=== PATIENT | male | born 1955 | race African-American/Black ===

== ENCOUNTER 2018-04-19 15:41 | Inpatient (IN) | payer MEDICARE ==
[~2018-04-19] VITALS: Ht 121.9 cm; Wt 58.5 kg
[2018-04-19] VITALS (31 sets, daily range): BP systolic 101–134; BP diastolic 61–75
[~2018-04-19 15:41] MED LIST: ETOMIDATE 2 MG/ML 10 ML INJ IV ONE; MIDAZOLAM HCL 2 MG/2 ML VIAL ONE; VECURONIUM BROMIDE FOR INJ 20 MG VIAL ONE
[2018-04-19] MEDS ORDERED: MEROPENEM 1 GM VIAL ONE (16:02)
[2018-04-19] MEDS ORDERED: ACETAMINOPHEN 1000 MG/100 ML 100 ML IV ONE (16:03)
[2018-04-19] MEDS ORDERED: SODIUM CHLORIDE 0.9% 100 ML ONE (16:03)
[2018-04-19] MEDS: NOREPINEPHRINE 8 MG/D5W 250 ML 250 ML IV SCH (16:03)
[2018-04-19] MEDS ORDERED: VANCOMYCIN 1GM/NS 250 ML 250 ML ONE (16:03)
[2018-04-19] MEDS: FENTANYL CITRATE INJ 2000 MCG in SODIUM CHLORIDE 0.9% 210 ML IV PRN (16:14)
[2018-04-19] MEDS ORDERED: ONDANSETRON HCL INJ 2 MG/ML VIAL ONE (16:19)
[2018-04-19 16:36] LABS: BASOPHILS % 0.1 % (0.0-1.0); HEMATOCRIT 46.2 % (38.2-49.6); HEMOGLOBIN 14.4 g/dL (14.0-18.0); LYMPHOCYTES # (AUTO) 3.3 (1.0-3.2); LYMPHOCYTES % 24.4 % (18.0-39.1); MEAN CORPUSCULAR HEMOGLOBIN 26.3 pg (28-32); MEAN CORPUSCULAR HGB CONC 31.2 g/dL (31-35); MEAN CORPUSCULAR VOLUME 84.5 fL (81-99); MONOCYTES # (AUTO) 1.6 (0.2-0.8); MONOCYTES % 11.7 % (4.4-11.3); NEUTROPHILS # (AUTO) 8.7 (2.1-6.9); NEUTROPHILS % 63.4 % (38.7-80.0); PLATELET COUNT 513 x10e3/uL (140-360); RED BLOOD COUNT 5.47 x10e6/uL (4.3-5.7); RED CELL DISTRIBUTION WIDTH 18.4 % (11.7-14.4)
[2018-04-19 16:44] LABS: ABG PH 7.41 (7.31-7.41)
[2018-04-19 16:45] LABS: ABG HCO3 32 mmol/L (23-28); ABG PCO2 50 mmHg (41-51); ABG PO2 209 mmHg (80-105)
[2018-04-19 16:47] LABS: ALBUMIN 3.5 g/dL (3.5-5.0); ALBUMIN/GLOBULIN RATIO 0.8 (0.8-2.0); ANION GAP 19.4 mmol/L (8-16); CALCIUM 9.6 mg/dL (8.4-10.2); CREATININE, SERUM 1.9 mg/dL (0.72-1.25); POTASSIUM 4.4 mmol/L (3.5-5.1)
[2018-04-19] MEDS ORDERED: INSULIN REGULAR, HUMAN 3ML VL 100 UNIT in SODIUM CHLORIDE 0.9% 100 ML 100 ML IV STA ×2 (17:00)
[2018-04-19] MEDS ORDERED: SODIUM CHLORIDE 0.45% 1,000 ML IV SCH (17:00)
[2018-04-19] MEDS ORDERED: SODIUM CHLORIDE 0.45% 1,000 ML IV ONE (17:00)
--- NOTE | 2018-04-19 17:04 | Diagnostic Imaging Report ---
EXAMINATION: CHEST SINGLE (PORTABLE) INDICATION: ET tube placement. Respiratory distress COMPARISON: None FINDINGS: TUBES and LINES: Endotracheal tube with distal tip 3 cm above the char[place]. Enteric tube with distal tip over the stomach. LUNGS: Ill-defined opacity in the right upper lobe and in the right middle lobe could be due to developing pneumonia and/or atelectasis. There is nonspecific elevation of the right hemidiaphragm. PLEURA: No pleural effusion or pneumothorax. HEART AND MEDIASTINUM: The cardiomediastinal silhouette is unremarkable. BONES AND SOFT TISSUES: No acute osseous lesion. Soft tissues are unremarkable. UPPER ABDOMEN: No free air under the diaphragm. IMPRESSION: Ill-defined opacity in the right upper lobe and in the right middle lobe could be due to developing pneumonia and/or atelectasis. Follow-up imaging is indicated to document clearing. Signed by: Dr. Demarcus Wilcox M.D. on 04/19/2018 5:00 PM
[2018-04-19] MEDS ORDERED: VANCOMYCIN 1GM/NS 250 ML 250 ML IV STA (17:26)
[2018-04-19 17:27] LABS: MAGNESIUM 2.4 MG/DL (1.3-2.1); PHOSPHORUS 4.6 MG/DL (2.3-4.7)
[2018-04-19] MEDS ORDERED: MIDAZOLAM HCL 2 MG/2 ML VIAL IV STA ×2 (17:28)
[2018-04-19] MEDS ORDERED: ACETAMINOPHEN 1000 MG/100 ML IV STA (17:29)
[2018-04-19] MEDS ORDERED: INSULIN REGULAR, HUMAN 100 UNIT/1 ML 3ML VIAL IV ONE (17:30)
[2018-04-19] MEDS ORDERED: MEROPENEM 1GM 100 ML IV SCH (17:30)
[2018-04-19] MEDS ORDERED: INSULIN REGULAR, HUMAN 100 UNIT/1 ML 3ML VIAL ONE (17:39)
[2018-04-19] MEDS ORDERED: SODIUM CHLORIDE 0.9% 50ML 50 ML ONE (17:40)
[2018-04-19] MEDS ORDERED: SODIUM CHLORIDE FLUSH 10 ML SYR INJ PRN (17:45)
[2018-04-19] MEDS ORDERED: ASPIRIN 81 MG CHEW TAB PO ONE (17:45)
[2018-04-19] MEDS ORDERED: DEXTROSE 50% SYRINGE 50 ML IV PRN (17:45)
[2018-04-19] MEDS: SODIUM CHLORIDE 23.4% 38.5 MEQ in STERILE WATER IV SOLN 1,000 ML IV SCH (17:45)
[2018-04-19] MEDS ORDERED: VANCOMYCIN HCL 1GM/NS 250 ML BAG IV SCH (17:45)
[2018-04-19 17:49] LABS: THYROID STIMULATING HORMONE 1.776 uIU/mL (0.350-4.940)
[2018-04-19 18:20] LABS: CREATINE KINASE MB 0.3 ng/mL (0-5.0)
[2018-04-19 18:41] LABS: BLOOD UREA NITROGEN 54 mg/dL (7-26); OSMOLALITY,SERUM 353 mOsm/kg (278-305); SODIUM 160 mmol/L (136-145)
[2018-04-19 18:47] LABS: GLUCOSE 483 mg/dL (74-118)
[2018-04-19] MEDS ORDERED: MEROPENEM 500MG 500 MG in SODIUM CHLORIDE 0.9% 50ML 50 ML IV SCH (19:45)
[2018-04-19] MEDS: INSULIN REGULAR, HUMAN 3ML VL 100 UNIT in SODIUM CHLORIDE 0.45% 100 ML 100 ML IV SCH ×8 (20:13→23:39)
[2018-04-19 20:48] LABS: BASOPHILS % 0.2 % (0.0-1.0); HEMATOCRIT 44.1 % (38.2-49.6); HEMOGLOBIN 13.5 g/dL (14.0-18.0); LYMPHOCYTES # (AUTO) 3.7 (1.0-3.2); LYMPHOCYTES % 22.5 % (18.0-39.1); MEAN CORPUSCULAR HEMOGLOBIN 26.1 pg (28-32); MEAN CORPUSCULAR HGB CONC 30.6 g/dL (31-35); MEAN CORPUSCULAR VOLUME 85.1 fL (81-99); MONOCYTES # (AUTO) 1.7 (0.2-0.8); MONOCYTES % 10.2 % (4.4-11.3); NEUTROPHILS % 66.4 % (38.7-80.0); PLATELET COUNT 511 x10e3/uL (140-360); RED BLOOD COUNT 5.18 x10e6/uL (4.3-5.7); RED CELL DISTRIBUTION WIDTH 18.1 % (11.7-14.4)
--- NOTE | 2018-04-19 21:06 | History and Physical ---
CHIEF COMPLAINT/HISTORY OF PRESENT ILLNESS: Patient is brought in from the retirement. He has dementia and unable to give any history. He is currently obtunded. Patient was dehydrated and was hypoxic. The EMS was not able to intubate. Patient was intubated in the emergency room. In the emergency room, 3 liters of saline was given for possible septic shock. Central line was placed and he was admitted to ICU. He required Levophed as well. Patient is contracted with bilateral amputation and lives at the retirement. Initial labs showed white count of 13,000. His lactic acid was 40.4. Sodium 159, potassium 4.4, chloride 114, BUN was 54, and creatinine 1.9. His anion gap of 19.4 and bicarb of 30. REVIEW OF SYSTEMS: Unable to elicit any as patient is intubated and sedated. PAST MEDICAL HISTORY: Per the EMS record and chart, dementia, bedbound, bilateral amputee, minimally responsive. PAST SURGICAL HISTORY: No surgical history is available. FAMILY AND SOCIAL HISTORY: He lives at the retirement. PHYSICAL EXAM VITAL SIGNS: Temperature 101.7, pulse of 99, blood pressure 110/67, and T-max of 103.4. CHEST: Crackles bilaterally. HEART: S1 and S2 audible. ABDOMEN: Soft, has a PEG tube. EXTREMITIES: Bilateral amputee. LABS: Sodium 159, potassium 4.4, chloride 114, BUN 54, creatinine 1.9, and glucose is 483. Chest x-ray was done in the emergency room, which showed ill-defined opacity in the right upper lobe and the right middle lobe could be developing pneumonia. Films reviewed in this context, this is likely aspiration pneumonia as patient suctioned s lot of food material from the airway when patient was getting intubated. ASSESSMENT: Mr. Hughes is a 62-year-old male who is bedbound, bilateral amputation, has a percutaneous endoscopic gastrostomy tube, presented with septic shock likely aspiration pneumonitis and severe dehydration. Current problems; 1. Aspiration pneumonitis. 2. Septic shock due to aspiration pneumonitis, present on admission. 3. Acute respiratory failure due to pneumonia. 4. Severe dehydration. 5. Hypernatremia. 6. Acute kidney injury due to hyponatremia. 7. Percutaneous endoscopic gastrostomy tube status. 8. Bilateral amputation status. 9. Diabetes. PLAN 1. Patient was given broad-spectrum intubated in the emergency room with vancomycin and meropenem. I will consult ID. 2. Severe dehydration with acute kidney injury. We will continue the patient on half normal saline. Consult nephrology. 3. Sedation with fentanyl. 4. Levophed as needed. 5. Ventilator support. Vent settings reviewed. Continue the patient on FiO2 of 50% for now. ABG in a.m. 6. Lovenox subcu for DVT prophylaxis. 7. Famotidine for GI prophylaxis. 8. We will consider changing the sliding scale if the blood sugar is stable. Critical care time spent 60 minutes. Job#: [id number] VINICIUS
[2018-04-19 21:08] LABS: ALBUMIN 3.1 g/dL (3.5-5.0); CALCIUM 8.6 mg/dL (8.4-10.2); CREATININE, SERUM 1.43 mg/dL (0.72-1.25)
[2018-04-19 21:09] LABS: ALBUMIN/GLOBULIN RATIO 0.8 (0.8-2.0)
[2018-04-19 21:13] LABS: LYMPHOCYTES % (MANUAL) 24 % (19-48); MONOCYTES % (MANUAL) 15 % (3.4-9.0); NEUTROPHILS % (MANUAL) 60 % (40-74); PLATELET MORPHOLOGY COMMENT NORMAL; RBC MORPHOLOGY COMMENT NORMAL
[2018-04-19 21:14] LABS: PLATELET ESTIMATE MODERATELY INCREASED
[2018-04-19 21:28] LABS: THYROID STIMULATING HORMONE 0.822 uIU/mL (0.350-4.940)
--- NOTE | 2018-04-19 22:24 | Diagnostic Imaging Report ---
ABDOMEN-1VIEW (KUB) Clinical history: Ileus Technique: AP view abdomen Comparison: None Findings: Limited by portable technique and motion artifact. Right hemidiaphragm is excluded. Abdomen: NG tube tip overlies the proximal stomach, side port at the GE junction. Presumed G-tube overlies the left upper quadrant. No dilated gas-filled loops of bowel. Moderate rectal stool burden. Other: Degenerative changes of the spine and hips. Impression: 1. NG tube side port projects over the GE junction. Consider advancement. 2. No evidence for obstruction or ileus. Moderate rectal stool burden. Signed by: Dr Tiffany Liz MD on 04/19/2018 10:20 PM
[2018-04-19] MEDS: MEROPENEM 1 GM VIAL IV SCH (22:30)
[2018-04-20] VITALS (102 sets, daily range): BP systolic 77–184; BP diastolic 49–150
[2018-04-20] MEDS: INSULIN REGULAR, HUMAN 3ML VL 100 UNIT in SODIUM CHLORIDE 0.45% 100 ML 100 ML IV SCH ×10 (00:30→07:02)
[2018-04-20] MEDS: ALBUTEROL/IPRATROPIUM 3 ML NEB NEB SCH ×6 (02:10→22:25)
[2018-04-20] MEDS: SODIUM CHLORIDE 23.4% 38.5 MEQ in STERILE WATER IV SOLN 1,000 ML IV SCH (04:48)
[2018-04-20 05:07] LABS: BASOPHILS % 0.2 % (0.0-1.0); EOSINOPHILS % 0.2 % (0.0-6.0); HEMATOCRIT 43.5 % (38.2-49.6); HEMOGLOBIN 13.6 g/dL (14.0-18.0); LYMPHOCYTES # (AUTO) 3.7 (1.0-3.2); LYMPHOCYTES % 27.6 % (18.0-39.1); MEAN CORPUSCULAR HEMOGLOBIN 26.4 pg (28-32); MEAN CORPUSCULAR HGB CONC 31.3 g/dL (31-35); MEAN CORPUSCULAR VOLUME 84.5 fL (81-99); MONOCYTES # (AUTO) 1.4 (0.2-0.8); MONOCYTES % 10.1 % (4.4-11.3); NEUTROPHILS # (AUTO) 8.3 (2.1-6.9); NEUTROPHILS % 61.3 % (38.7-80.0); PLATELET COUNT 344 x10e3/uL (140-360); RED BLOOD COUNT 5.15 x10e6/uL (4.3-5.7); RED CELL DISTRIBUTION WIDTH 17.6 % (11.7-14.4)
[2018-04-20 05:29] LABS: ALANINE AMINOTRANSFERASE 82 IU/L (0-55); ALBUMIN 2.9 g/dL (3.5-5.0); ALBUMIN/GLOBULIN RATIO 0.7 (0.8-2.0); ALKALINE PHOSPHATASE 89 IU/L (40-150); ANION GAP 15.7 mmol/L (8-16); BLOOD UREA NITROGEN 33 mg/dL (7-26); BUN/CREATININE RATIO 29 (6-25); CALCIUM 8.6 mg/dL (8.4-10.2); CARBON DIOXIDE 24 mmol/L (22-29); CHLORIDE 124 mmol/L (98-107); CREATINE KINASE 251 IU/L (30-200); CREATININE, SERUM 1.15 mg/dL (0.72-1.25); EST GLOMERULAR FILTRATION RATE > 60 ML/MIN (60-); GLUCOSE 95 mg/dL (74-118); OSMOLALITY,SERUM 324 mOsm/kg (278-305); POTASSIUM 3.7 mmol/L (3.5-5.1); SODIUM 160 mmol/L (136-145)
[2018-04-20] MEDS: MEROPENEM 1 GM VIAL IV SCH ×3 (06:51→23:36)
--- NOTE | 2018-04-20 07:40 | Diagnostic Imaging Report ---
CHEST SINGLE (PORTABLE), 04/20/2018 5:00 AM Technique: CHEST SINGLE (PORTABLE) Comparison: Previous day Clinical history: Pneumonia Findings: See Impression. Stable cardiac silhouette, bones, soft tissues. Impression: Limited by portable technique. 1. Lines/Tubes: Stable ET tube about 3.7 cm above the char[place], NG tube with tip over the stomach and side-port of the distal esophagus, left IJ central venous catheter with tip over the brachiocephalic SVC junction. 2. Mildly improved right lung opacities, possibly atelectasis and/or infection. Signed by: Dr Tiffany Liz MD on 04/20/2018 6:29 AM
[2018-04-20] MEDS ORDERED: MAGNESIUM HYDROXIDE 30 ML UDC PO PRN (10:45)
--- NOTE | 2018-04-20 11:13 | Consultation ---
DATE OF CONSULTATION: INFECTIOUS DISEASE CONSULTATION HISTORY OF PRESENTING ILLNESS: This is a 62-year-old gentleman with a past medical history of uncontrolled diabetes mellitus, hypertension, amputation of first the right leg about 12 years back and amputation of the left leg, above-knee amputation, about 4 years back due to complications of diabetes mellitus. 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 All the information is provided by the daughter at the bedside. The patient is a long term resident. There was a witnessed aspiration, and he ended up choking on his food. The patient had difficulty breathing, and he was in respiratory distress later on. It was complicated with hypertension. Then he had collapse, confusion, and altered mental status. EMS was called. The patient had a failed attempt at intubation at site, but he was intubated later on in the ER at [facility]. The patient has an NG tube for possible aspiration and a gastrostomy tube for his feeding. The patient is in ICU. He is intubated. The daughter is at the bedside. PAST MEDICAL HISTORY: As I mentioned above, hypertension, diabetes mellitus, stroke. PAST SURGICAL HISTORY: Amputation of both legs. MEDICATIONS: Reviewed. ALLERGIES: NO KNOWN DRUG ALLERGIES. FAMILY HISTORY: Noncontributory. SOCIAL HISTORY: Patient is a long term resident. REVIEW OF SYSTEMS: Unable to obtain as the patient is intubated. PHYSICAL EXAMINATION VITALS: Temperature is 100.2, respiratory rate 16, heart rate 84, blood pressure 106/62. GENERAL: Emaciated male, intubated. HEENT: Intubation. NG tube. CHEST: Crackles bilaterally. HEART: S1, S2 are normal. ABDOMEN: Soft, nontender. EXTREMITIES: Bilateral amputations, left above-knee amputation and right below-knee amputation. Wounds are well approximated. No open ulcers. NEUROLOGIC: Not awake, sedated. LABS: Sodium 160, potassium 3.7, creatinine 1.15. CK is 251. WBC 13.46, hemoglobin 13.6, platelet count 344. Blood cultures are in progress. Sputum culture shows gram-positive cocci. IMAGING: Right lung opacities. ASSESSMENT AND PLAN: This 62-year-old gentleman with past medical history of hypertension, diabetes mellitus, stroke, and amputation of bilateral legs presents with severe sepsis due to possible aspiration pneumonia. Workup is in progress. Will continue the patient n IV Merrem 1 g q.8 h. and continue the patient on IV vancomycin 1 g q.12 h. The patient is also going to be started on fluconazole 200 mg daily. Further recommendations to follow. We will tailor the antibiotics according to the cultures. Thank you for letting me participate in the care of your patient. Job#: [id number]
[2018-04-20] MEDS: MIDAZOLAM HCL 25 MG in SODIUM CHLORIDE 0.9% 50ML 45 ML IV PRN ×2 (11:20→15:36)
[2018-04-20] MEDS: DEXTROSE 5% 1,000 ML IV SCH ×2 (11:45→23:36)
[2018-04-20] MEDS: FLUCONAZOLE 200 MG/100 ML 100 ML IV SCH (11:45)
[2018-04-20] MEDS: FAMOTIDINE 20 MG/2 ML VIAL IV SCH ×2 (12:08→18:29)
[2018-04-20] MEDS: ENOXAPARIN SOD INJ 40 MG/0.4 ML SYR SC SCH (12:08)
[2018-04-20] MEDS: INSULIN DETEMIR 100 UNIT/ML PEN SQ SCH (12:45)
[2018-04-20 14:09] LABS: CREATINE KINASE MB 0.4 ng/mL (0-5.0)
[2018-04-20 14:29] LABS: ANION GAP 14.1 mmol/L (8-16); BLOOD UREA NITROGEN 26 mg/dL (7-26); BUN/CREATININE RATIO 24 (6-25); CALCIUM 8.2 mg/dL (8.4-10.2); CARBON DIOXIDE 27 mmol/L (22-29); CHLORIDE 121 mmol/L (98-107); EST GLOMERULAR FILTRATION RATE > 60 ML/MIN (60-); GLUCOSE 112 mg/dL (74-118); POTASSIUM 3.1 mmol/L (3.5-5.1); SODIUM 159 mmol/L (136-145)
[2018-04-20] MEDS ORDERED: ACETAMINOPHEN 1000 MG/100 ML IV PRN (15:30)
[2018-04-20] MEDS ORDERED: PROMETHAZINE 12.5MG/ NACL 0.9% 12.5 MG/50 ML BAG IV PRN (15:30)
[2018-04-20] MEDS ORDERED: POTASSIUM CHLORIDE 10MEQ/100ML 100 ML IV ONE (15:30)
[2018-04-20] MEDS ORDERED: ONDANSETRON HCL INJ 2 MG/ML VIAL ONE (15:35)
[2018-04-20] MEDS ORDERED: POTASSIUM CHLORIDE 10MEQ/100ML 100 ML ONE (15:36)
[2018-04-20] MEDS ORDERED: POTASSIUM PHOSPHATE 10 MM in SODIUM CHLORIDE 0.9% 250ML 250 ML IV ONE (16:00)
[2018-04-20] MEDS: NOREPINEPHRINE 8 MG/D5W 250 ML 250 ML IV SCH (16:42)
[2018-04-20] MEDS: DOCUSATE SODIUM LIQD 100 MG/10 ML UDC NG SCH (16:45)
[2018-04-20] MEDS: VANCOMYCIN 1GM/NS 250 ML 250 ML IV SCH (18:29)
[2018-04-20] MEDS: FENTANYL CITRATE INJ 2000 MCG in SODIUM CHLORIDE 0.9% 210 ML IV PRN (18:33)
[2018-04-21] VITALS (65 sets, daily range): BP systolic 90–127; BP diastolic 45–108
[2018-04-21] MEDS: MIDAZOLAM HCL 25 MG in SODIUM CHLORIDE 0.9% 50ML 45 ML IV PRN (00:28)
[2018-04-21] MEDS: DEXTROSE 5% 1,000 ML IV SCH ×3 (02:45→20:12)
[2018-04-21 05:21] LABS: CLARITY,URINE CLEAR (CLEAR); COLOR,URINE YELLOW (YELLOW)
[2018-04-21 05:22] LABS: BACTERIA,URINE RARE /HPF; BILIRUBIN,URINE NEGATIVE (NEGATIVE); EPITHELIAL CELLS,URINE FEW /LPF; KETONES,URINE NEGATIVE (NEGATIVE); LEUKOCYTE ESTERASE ,URINE NEGATIVE (NEGATIVE); NITRITE,URINE NEGATIVE (NEGATIVE); PROTEIN,URINE DIPSTICK TRACE (NEGATIVE); RBC,URINE 0-5 /HPF (0-5); URINE UROBILINOGEN 1 mg/dL (0.2 - 1); WBC,URINE (MAN) 0-5 /HPF (0-5)
[2018-04-21 05:32] LABS: BASOPHILS % 0.2 % (0.0-1.0); EOSINOPHILS # (AUTO) 0.2 (0.0-0.4); EOSINOPHILS % 1.7 % (0.0-6.0); HEMATOCRIT 31.6 % (38.2-49.6); HEMOGLOBIN 10.2 g/dL (14.0-18.0); LYMPHOCYTES # (AUTO) 3.5 (1.0-3.2); LYMPHOCYTES % 29.8 % (18.0-39.1); MEAN CORPUSCULAR HEMOGLOBIN 26.6 pg (28-32); MEAN CORPUSCULAR HGB CONC 32.3 g/dL (31-35); MEAN CORPUSCULAR VOLUME 82.3 fL (81-99); MONOCYTES % 8.2 % (4.4-11.3); NEUTROPHILS # (AUTO) 6.9 (2.1-6.9); NEUTROPHILS % 59.2 % (38.7-80.0); PLATELET COUNT 345 x10e3/uL (140-360); RED BLOOD COUNT 3.84 x10e6/uL (4.3-5.7); RED CELL DISTRIBUTION WIDTH 17.2 % (11.7-14.4)
[2018-04-21 05:41] LABS: BLOOD UREA NITROGEN 17 mg/dL (7-26); BUN/CREATININE RATIO 16 (6-25); CALCIUM 7.7 mg/dL (8.4-10.2); CARBON DIOXIDE 25 mmol/L (22-29); CHLORIDE 116 mmol/L (98-107); CREATININE, SERUM 1.06 mg/dL (0.72-1.25); EST GLOMERULAR FILTRATION RATE > 60 ML/MIN (60-); GLUCOSE 136 mg/dL (74-118); SODIUM 151 mmol/L (136-145)
[2018-04-21] MEDS: ALBUTEROL/IPRATROPIUM 3 ML NEB NEB SCH ×6 (07:24→23:00)
[2018-04-21] MEDS: POTASSIUM CHLORIDE 20MEQ/100ML 100 ML IV PRN ×2 (08:00→17:28)
[2018-04-21] MEDS: MEROPENEM 1 GM VIAL IV SCH ×3 (08:11→21:50)
[2018-04-21] MEDS: ENOXAPARIN SOD INJ 40 MG/0.4 ML SYR SC SCH (08:11)
[2018-04-21] MEDS: FAMOTIDINE 20 MG/2 ML VIAL IV SCH ×2 (08:11→16:54)
[2018-04-21] MEDS: ONDANSETRON HCL INJ 2 MG/ML VIAL IV PRN ×2 (08:11→12:29)
--- NOTE | 2018-04-21 08:49 | Diagnostic Imaging Report ---
EXAMINATION: CHEST SINGLE (PORTABLE) INDICATION: \S\Intubated \[id number] \S\[id number] COMPARISON: Chest radiograph 04/20/2018 FINDINGS: AP view TUBES and LINES: Stable endotracheal tube, left IJ central venous catheter, and NG/G-tube with sidehole at the level of the gastroesophageal junction. LUNGS: Lungs are well inflated. Stable patchy airspace opacities in the perihilar region. PLEURA: No pleural effusion or pneumothorax. HEART AND MEDIASTINUM: The cardiomediastinal silhouette is unremarkable. Mild atherosclerotic calcifications of the aortic arch. BONES AND SOFT TISSUES: No acute osseous lesion. Soft tissues are unremarkable. UPPER ABDOMEN: No free air under the diaphragm. IMPRESSION: NG/NG tube with sidehole at the GE junction. Recommend advancement. Stable patchy perihilar airspace opacities suggestive of atypical infection or atelectasis. Signed by: Dr. Krysta Gomez M.D. on 04/21/2018 8:43 AM
[2018-04-21] MEDS: DOCUSATE SODIUM LIQD 100 MG/10 ML UDC NG SCH ×2 (09:00→16:52)
[2018-04-21] MEDS ORDERED: INSULIN REGULAR, HUMAN 100 UNIT/1 ML 3ML VIAL SQ SCH (12:00)
[2018-04-21] MEDS: INSULIN DETEMIR 100 UNIT/ML PEN SQ SCH (12:23)
[2018-04-21] MEDS: FLUCONAZOLE 200 MG/100 ML 100 ML IV SCH (12:23)
[2018-04-21] MEDS: INSULIN REGULAR, HUMAN 100 UNIT/1 ML 3ML VIAL SQ SCH ×2 (12:36→18:51)
[2018-04-21] MEDS ORDERED: ACETAMINOPHEN 325 MG TAB PO PRN (13:30)
[2018-04-21 13:43] LABS: ANION GAP 14.3 mmol/L (8-16); BLOOD UREA NITROGEN 14 mg/dL (7-26); BUN/CREATININE RATIO 15 (6-25); CALCIUM 7.6 mg/dL (8.4-10.2); CARBON DIOXIDE 22 mmol/L (22-29); CHLORIDE 114 mmol/L (98-107); CREATININE, SERUM 0.96 mg/dL (0.72-1.25); EST GLOMERULAR FILTRATION RATE > 60 ML/MIN (60-); GLUCOSE 152 mg/dL (74-118); MAGNESIUM 1.8 MG/DL (1.3-2.1); PHOSPHORUS 2.7 MG/DL (2.3-4.7); POTASSIUM 3.3 mmol/L (3.5-5.1); SODIUM 147 mmol/L (136-145)
[2018-04-21 14:17] LABS: ABG HCO3 26 mmol/L (23-28); ABG PCO2 36 mmHg (41-51); ABG PH 7.47 (7.31-7.41); ABG PO2 135 mmHg (80-105)
[2018-04-21] MEDS: NOREPINEPHRINE 8 MG/D5W 250 ML 250 ML IV SCH (16:00)
[2018-04-21] MEDS ORDERED: DEXMEDETOMIDINE HCL 200 MCG in SODIUM CHLORIDE 0.9% 50ML 48 ML IV SCH (20:00)
[2018-04-22] VITALS (45 sets, daily range): BP systolic 78–140; BP diastolic 52–79
[2018-04-22] MEDS: MEROPENEM 1 GM VIAL IV SCH ×3 (02:45→21:57)
[2018-04-22] MEDS: DEXTROSE 5% 1,000 ML IV SCH ×2 (02:47→10:45)
[2018-04-22] MEDS: ALBUTEROL/IPRATROPIUM 3 ML NEB NEB SCH ×6 (03:00→23:00)
[2018-04-22] MEDS: INSULIN REGULAR, HUMAN 100 UNIT/1 ML 3ML VIAL SQ SCH ×4 (05:30→18:00)
[2018-04-22] MEDS ORDERED: DEXMEDETOMIDINE HCL 200 MCG in SODIUM CHLORIDE 0.9% 50ML 48 ML IV PRN (07:15)
[2018-04-22] MEDS ORDERED: DEXMEDETOMIDINE HCL 200 MCG in SODIUM CHLORIDE 0.9% 50ML 48 ML IV SCH (07:15)
--- NOTE | 2018-04-22 08:56 | Consultation ---
DATE OF CONSULTATION: RENAL CONSULTATION HISTORY OF PRESENT ILLNESS: Mr. Hughes is a pleasant 62-year-old male patient with past medical history significant for prior history of CVA. The patient also has prior history of diabetes mellitus. No known previous renal disease. Came into the hospital apparently with possible sepsis, was placed on antibiotics. He was found to have elevated renal indices. Admission creatinine was 1.9, sodium was 159. Subsequently, sodium increased to 160. Also had elevated blood sugars. Eventually with D5 water and control of blood sugars with insulin, the patient's kidney function also started to improve as did the sodium level. Today, the sodium level is 147, creatinine is down to 0.96. Renal consultation was asked for the management of the patient's acute kidney injury, unlikely chronic kidney disease at baseline. He likely has CKD stage 2 from his history of diabetes mellitus. Sodium has been replenished with free water replacement and the patient's sodium is improving at 147. The patient is seen in his room. He is nonverbal. 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 Currently, he is normotensive. He is nonoliguric. PAST MEDICAL HISTORY: As outlined above. ALLERGIES: NO KNOWN DRUG ALLERGIES. SOCIAL HISTORY: No tobacco, no alcohol use. FAMILY HISTORY: Noncontributory. REVIEW OF SYSTEMS: As per HPI. Otherwise, all systems were negative. MEDICATIONS: Have been reviewed per chart. PHYSICAL EXAMINATION VITAL SIGNS: Blood pressure is 140/79, 71 pulse. The patient is afebrile. HEENT: No cervical lymphadenopathy. Neck is supple without masses. No increased JVD. Moist and pink mucosa. Skin moist with significant turgor. CHEST: Chest wall has good expansion. No chest wall tenderness. LUNGS: Clear to auscultation bilaterally. CARDIOVASCULAR: S1, S2. No obvious gallop, rub or murmur. ABDOMEN: Soft. Positive bowel sounds. Difficult assess tenderness. EXTREMITIES: No evidence of lower extremity edema. No clubbing or cyanosis. NEUROLOGICAL: Awake, not oriented x3, nonverbal. Has paralysis from previous CVA. LABORATORY WORKUP: On admission, sodium was around 159 to 160, creatinine was as high as 1.4. Now, creatinine is down to 0.96, sodium is down to 147. Potassium today is 3.3, BUN 14, carbon dioxide is 22, chloride is 114, calcium is 7.6, phosphorus 2.7, magnesium is 1.8. IMPRESSION AND PLAN 1. Acute kidney injury on chronic kidney disease, likely stage 2 at baseline. Acute kidney injury is likely from prerenal azotemia which is responding quite well to D5 water at 125 mL per hour. With free water replacement and volume replacement, the patient's kidney function is improved. Recheck laboratories in the morning including basic metabolic panel, magnesium, phosphorus and complete blood count and make further recommendations. 2. Hypernatremia from free water deficit. Once tube feeds are started, would place the patient on equivalent of 150 mL q.6 h. We will continue with the D5 water right now. I will decrease the rate to 100 mL per hour and recheck again in the morning. 3. Hypokalemia. We will replace with 40 mEq intravenously and we will recheck tomorrow in the morning. 4. Hypocalcemia. Check ionized calcium level and replace with 1 g of calcium gluconate. Thank you once again for the consultation, Dr. Suárez and Dr. Coto. We will follow the patient closely along with you and make further recommendations. Job#: [id number] COY cc:Hardik NIXON MD
[2018-04-22] MEDS ORDERED: CALCIUM GLUCONATE 10% INJ 4.65 MEQ in SODIUM CHLORIDE 0.9% 50ML 50 ML IV ONE (09:00)
[2018-04-22] MEDS: DOCUSATE SODIUM LIQD 100 MG/10 ML UDC NG SCH ×2 (09:36→17:28)
[2018-04-22] MEDS: VANCOMYCIN 1GM/NS 250 ML 250 ML IV SCH (09:36)
[2018-04-22] MEDS: ENOXAPARIN SOD INJ 40 MG/0.4 ML SYR SC SCH (09:36)
[2018-04-22] MEDS: FAMOTIDINE 20 MG/2 ML VIAL IV SCH ×2 (09:36→17:28)
[2018-04-22] MEDS: INSULIN DETEMIR 100 UNIT/ML PEN SQ SCH (09:37)
[2018-04-22] MEDS ORDERED: POTASSIUM CHLORIDE 10MEQ/100ML 300 ML IV ONE (10:00)
[2018-04-22 10:12] LABS: BASOPHILS % 0.1 % (0.0-1.0); EOSINOPHILS # (AUTO) 0.2 (0.0-0.4); EOSINOPHILS % 3.2 % (0.0-6.0); HEMATOCRIT 30.8 % (38.2-49.6); HEMOGLOBIN 9.9 g/dL (14.0-18.0); LYMPHOCYTES # (AUTO) 1.3 (1.0-3.2); LYMPHOCYTES % 17.8 % (18.0-39.1); MEAN CORPUSCULAR HEMOGLOBIN 26.8 pg (28-32); MEAN CORPUSCULAR HGB CONC 32.1 g/dL (31-35); MEAN CORPUSCULAR VOLUME 83.2 fL (81-99); MONOCYTES # (AUTO) 0.6 (0.2-0.8); MONOCYTES % 7.8 % (4.4-11.3); NEUTROPHILS # (AUTO) 5.3 (2.1-6.9); NEUTROPHILS % 70.6 % (38.7-80.0); PLATELET COUNT 255 x10e3/uL (140-360); RED CELL DISTRIBUTION WIDTH 16.7 % (11.7-14.4)
[2018-04-22 10:36] LABS: ALANINE AMINOTRANSFERASE 51 IU/L (0-55); ALBUMIN 2.4 g/dL (3.5-5.0); ALBUMIN/GLOBULIN RATIO 0.6 (0.8-2.0); ALKALINE PHOSPHATASE 77 IU/L (40-150); ANION GAP 12.7 mmol/L (8-16); BLOOD UREA NITROGEN 8 mg/dL (7-26); BUN/CREATININE RATIO 11 (6-25); CALCIUM 7.9 mg/dL (8.4-10.2); CARBON DIOXIDE 25 mmol/L (22-29); CHLORIDE 110 mmol/L (98-107); CREATININE, SERUM 0.76 mg/dL (0.72-1.25); EST GLOMERULAR FILTRATION RATE > 60 ML/MIN (60-); GLUCOSE 118 mg/dL (74-118); MAGNESIUM 1.9 MG/DL (1.3-2.1); PHOSPHORUS 1.7 MG/DL (2.3-4.7); POTASSIUM 3.7 mmol/L (3.5-5.1); SODIUM 144 mmol/L (136-145)
[2018-04-22] MEDS: FLUCONAZOLE 200 MG/100 ML 100 ML IV SCH (11:58)
[2018-04-22] MEDS ORDERED: POTASSIUM PHOSPHATE 20 MM in SODIUM CHLORIDE 0.9% 250ML 250 ML IV ONE (13:30)
[2018-04-22] MEDS: ONDANSETRON HCL INJ 2 MG/ML VIAL IV PRN (14:09)
[2018-04-22] MEDS: QUETIAPINE FUMARATE 25 MG TAB PO SCH (21:57)
[2018-04-23] VITALS (15 sets, daily range): BP systolic 98–127; BP diastolic 57–71
[2018-04-23] MEDS: INSULIN REGULAR, HUMAN 100 UNIT/1 ML 3ML VIAL SQ SCH ×4 (00:45→18:00)
[2018-04-23] MEDS: ALBUTEROL/IPRATROPIUM 3 ML NEB NEB SCH ×6 (03:00→22:15)
[2018-04-23 04:46] LABS: BASOPHILS % 0.2 % (0.0-1.0); EOSINOPHILS # (AUTO) 0.2 (0.0-0.4); EOSINOPHILS % 2.6 % (0.0-6.0); HEMATOCRIT 29.4 % (38.2-49.6); HEMOGLOBIN 9.5 g/dL (14.0-18.0); LYMPHOCYTES # (AUTO) 1.5 (1.0-3.2); LYMPHOCYTES % 26.2 % (18.0-39.1); MEAN CORPUSCULAR HEMOGLOBIN 26.5 pg (28-32); MEAN CORPUSCULAR HGB CONC 32.3 g/dL (31-35); MEAN CORPUSCULAR VOLUME 81.9 fL (81-99); MONOCYTES # (AUTO) 0.4 (0.2-0.8); NEUTROPHILS # (AUTO) 3.7 (2.1-6.9); PLATELET COUNT 285 x10e3/uL (140-360); RED BLOOD COUNT 3.59 x10e6/uL (4.3-5.7); RED CELL DISTRIBUTION WIDTH 16.4 % (11.7-14.4)
[2018-04-23 05:12] LABS: ANION GAP 11.5 mmol/L (8-16); BLOOD UREA NITROGEN 7 mg/dL (7-26); BUN/CREATININE RATIO 9 (6-25); CALCIUM 8.3 mg/dL (8.4-10.2); CARBON DIOXIDE 26 mmol/L (22-29); CHLORIDE 110 mmol/L (98-107); CREATININE, SERUM 0.78 mg/dL (0.72-1.25); EST GLOMERULAR FILTRATION RATE > 60 ML/MIN (60-); GLUCOSE 107 mg/dL (74-118); PHOSPHORUS 1.6 MG/DL (2.3-4.7); POTASSIUM 3.5 mmol/L (3.5-5.1); SODIUM 144 mmol/L (136-145)
[2018-04-23] MEDS: VANCOMYCIN 1GM/NS 250 ML 250 ML IV SCH (06:09)
[2018-04-23] MEDS: DEXTROSE 5% 1,000 ML IV SCH (06:09)
[2018-04-23] MEDS: MEROPENEM 1 GM VIAL IV SCH ×3 (06:09→22:10)
[2018-04-23] MEDS ORDERED: QUETIAPINE FUMARATE 25 MG TAB PO SCH (09:00)
[2018-04-23] MEDS: DOCUSATE SODIUM LIQD 100 MG/10 ML UDC NG SCH ×2 (09:11→18:01)
[2018-04-23] MEDS: FAMOTIDINE 20 MG/2 ML VIAL IV SCH ×2 (09:11→18:01)
[2018-04-23] MEDS: ENOXAPARIN SOD INJ 40 MG/0.4 ML SYR SC SCH (09:12)
[2018-04-23] MEDS: BALSAM PERU/CASTOR OIL 60 GM OINT...G. TP SCH ×2 (09:12→18:01)
[2018-04-23] MEDS: QUETIAPINE FUMARATE 25 MG TAB PO SCH ×2 (09:12→18:01)
[2018-04-23] MEDS: INSULIN DETEMIR 100 UNIT/ML PEN SQ SCH (09:51)
[2018-04-23] MEDS: FLUCONAZOLE 200 MG/100 ML 100 ML IV SCH (11:18)
[2018-04-24] MEDS: INSULIN REGULAR, HUMAN 100 UNIT/1 ML 3ML VIAL SQ SCH ×3 (00:29→12:00)
[2018-04-24 01:40] VITALS: BP 122/71
[2018-04-24] MEDS: ALBUTEROL/IPRATROPIUM 3 ML NEB NEB SCH ×3 (02:20→11:30)
[2018-04-24 04:00] VITALS: BP 107/48
[2018-04-24] MEDS: VANCOMYCIN 1GM/NS 250 ML 250 ML IV SCH (05:58)
[2018-04-24 07:30] VITALS: BP 131/67
[2018-04-24] MEDS ORDERED: TRIMETHOPRIM/SULFAMETHOXAZOLE 160-800 MG TAB PO SCH (09:00)
[2018-04-24] MEDS: DOCUSATE SODIUM LIQD 100 MG/10 ML UDC NG SCH (09:00)
[2018-04-24] MEDS: INSULIN DETEMIR 100 UNIT/ML PEN SQ SCH (09:00)
[2018-04-24] MEDS: BALSAM PERU/CASTOR OIL 60 GM OINT...G. TP SCH (10:08)
[2018-04-24] MEDS: QUETIAPINE FUMARATE 25 MG TAB PO SCH (10:08)
[2018-04-24] MEDS: FAMOTIDINE 20 MG/2 ML VIAL IV SCH (10:08)
[2018-04-24] MEDS: ENOXAPARIN SOD INJ 40 MG/0.4 ML SYR SC SCH (10:08)
[2018-04-24 10:17] VITALS: BP 131/67
[2018-04-24 11:57] VITALS: BP 131/67
--- NOTE | 2018-04-25 00:01 | Discharge Summary ---
ADMISSION DIAGNOSES: 1. Aspiration pneumonitis. 2. Acute kidney injury. ADMISSION HISTORY AND HOSPITAL COURSE: [facility]. [facility]. He has dementia. He was intubated for aspiration pneumonitis. Patient has PEG tube, bilateral amputation. He was extubated, did well. Antibiotics were continued per ID recommendation, they changed the antibiotics to p.o. antibiotics. His Gram stain and culture from sputum grew Providencia. Nephrology was consulted. Patient's renal failure resolved with IV hydration. He will be [facility] back to the [facility]. FINAL DIAGNOSES: 1. Aspiration pneumonitis, present on admission. 2. Dementia. 3. Bilateral amputation status. 4. History of stroke. 5. Hypertension. 6. Diabetes. ASTRID OLEARY MD Job#: [id number]
== END 2018-04-24 14:51 | DRG 871 ==
LOC: ER 15:41 → ERHOLD 18:09 → ICU 19:15 → IMCU 04-23 16:39
PROVIDERS: ADMIT Internal Medicine; ATTEND Internal Medicine
PROC: 5A1945Z Respiratory Ventilation, 24-96 Consecutive Hours (ICD-10-PCS; principal; 2018-04-19)
PROC: 0BH17EZ Insertion of Endotracheal Airway into Trachea, Via Natural or Artificial Opening (ICD-10-PCS; 2018-04-19)
PROC: 02HV33Z Insertion of Infusion Device into Superior Vena Cava, Percutaneous Approach (ICD-10-PCS; 2018-04-19)
DX: A41.9 Sepsis, unspecified organism (principal); J69.0 Pneumonitis due to inhalation of food and vomit; R65.21 Severe sepsis with septic shock; J96.01 Acute respiratory failure with hypoxia; N17.9 Acute kidney failure, unspecified; E87.0 Hyperosmolality and hypernatremia; Z89.612 Acquired absence of left leg above knee; Z89.611 Acquired absence of right leg above knee; E11.65 Type 2 diabetes mellitus with hyperglycemia; E11.22 Type 2 diabetes mellitus with diabetic chronic kidney disease; N18.2 Chronic kidney disease, stage 2 (mild); F03.90 Unspecified dementia, unspecified severity, without behavioral disturbance, psychotic disturbance, mood disturbance, and anxiety; Z74.01 Bed confinement status; Z93.1 Gastrostomy status; E86.0 Dehydration; E87.6 Hypokalemia; E83.51 Hypocalcemia; T87.89 Other complications of amputation stump; Z78.1 Physical restraint status; B96.89 Other specified bacterial agents as the cause of diseases classified elsewhere; I69.398 Other sequelae of cerebral infarction; M24.50 Contracture, unspecified joint
CPT/HCPCS: 36415; 36555; 36600; 51700; 71045; 74018; 80048; 80053; 80202; 81001; 82330; 82550; 82553; 82570; 82805; 82947; 82948; 83605; 83735; 83880; 84100; 84295; 84443; 84484; 84520; 85025; 87040; 87070; 87086; 87186; 87205; 93005; 94002; 94003; 94640; 96361; 96366; 96372; 99285; J1450; J1650; J2185; J2250; J2405; J2550; J3370; J3480; J7050; J7070; J7799